=== PATIENT | female | born 1985 | race Caucasian/White ===

== ENCOUNTER 2017-01-03 11:00 | Day surgery (SDC) | payer OTHER ==
[~2017-01-03] VITALS: Ht 165.1 cm; Wt 113.0 kg
[~2017-01-03 11:00] MED LIST: ALBU8.5H3 INH; BACTDS PO; BECL8.7A INH; IBUP-1542 PO; OMEP20CA16 PO; OXYC-281 PO; TRAM50TA2 PO
[2017-01-03 11:50] VITALS: Ht 165.1 cm; Wt 113.0 kg
[2017-01-03] MEDS ORDERED: CETI10CA PO (11:54)
[2017-01-03] MEDS ORDERED: FLUT9.9S NASAL (11:54)
[2017-01-03] MEDS ORDERED: MONT10TA21 PO (11:54)
[2017-01-03] MEDS ORDERED: PROPOFOL 20 ML ONE (12:57)
[2017-01-03 13:10] VITALS: BP 101/64; PULSE 54; RESP 18
[2017-01-03 13:46] VITALS: BP 97/51; PULSE 67; RESP 18
--- NOTE | 2017-01-03 14:14 | GILP ---
DATE OF PROCEDURE: 01/03/2017 NAME OF PROCEDURES: Esophagogastroduodenoscopy and biopsy. SURGEON: Arnie Acharya MD PREOPERATIVE DIAGNOSIS: Chronic heartburn. POSTOPERATIVE DIAGNOSES: 1. Hiatal hernia. 2. Gastroesophageal reflux disease. 3. Gastritis with erosions. 4. Gastric mucosal biopsies were taken for Helicobacter pylori test. INDICATION FOR THE PROCEDURE: Ms. Melanie Zapata is a 31-year-old female patient who had chroni c heartburn, not responding to therapy. The patient was scheduled for endoscopic examination for fu rther evaluation. The procedure and possible complications are well explained to the patient, she understood and conse nted to the procedure. DESCRIPTION OF PROCEDURE: Under the influence of anesthesia, the gastroscope was carefully introduc ed into the esophagus and under direct vision, it was advanced to the stomach and through the pyloru s into the duodenal bulb and descending duodenum. FINDINGS: ESOPHAGUS: The patient had hiatal hernia and gastroesophageal reflux disease. STOMACH: She had gastritis with erosions. Gastric mucosal biopsies were taken for H. pylori test. DUODENUM: Normal. She tolerated the procedure very well and there was no complication from the procedure. At the end of the procedures, she was awake with stable vital signs and she was discharged home to the care of her family. IMPRESSION: Please see postoperative diagnosis. PLAN: 1. Continue omeprazole. 2. Add Zantac 300 mg p.o. at bedtime. 3. Await H. pylori test report. Dictated By: ARNIE ACHARYA MD GD/NTS Conf#: [id number] DID#: [id number] CC: ARNIE ACHARYA MD;*EndCC*
--- NOTE | 2017-01-04 12:28 | CONS ---
DATE OF ADMISSION: 01/03/2017 DATE OF CONSULTATION: TYPE OF CONSULTATION: Preoperative gastroenterology. Dear Dr. Judge: I thank you very much for this kind referral. HISTORY OF PRESENT ILLNESS: Ms. Melanie Zapata is a 31-year-old female patient who has been ref erred to me for further evaluation of chronic heartburn not responding to therapy with omeprazole. There is no past history of peptic ulcer disease. She is not taking any nonsteroidal anti-inflammat ory agents. Her appetite has been good, and there is no history of significant weight loss. There is no history of gallstones. She does not have any fever, chills or jaundice. There is no history of liver disease. The patient denies any change in the bowel habit or rectal bleeding. There is no past history of inflammatory bowel disease or colon neoplasm. She is not hypertensive or diabetic. She does not have any heart disease. She has a history of bronchial asthma. There is no history of kidney disease. SOCIAL HISTORY: She is a nonsmoker. She does not abuse alcohol. FAMILY HISTORY: Negative for gastrointestinal tract neoplasm. ALLERGIES: THERE IS NO HISTORY OF SIGNIFICANT DRUG ALLERGY. MEDICATIONS: 1. Qvar inhaler. 2. Singulair. PHYSICAL EXAMINATION: VITAL SIGNS: She is 5 feet 5 inches tall and she weighs 250 pounds. HEART: Examination of the heart reveals normal first and second heart sounds. LUNGS: Clear. ABDOMEN: Soft without any distention. Liver and spleen are not palpable. There are no masses. Th ere is no focal tenderness. Normal bowel sounds are heard. CENTRAL NERVOUS SYSTEM: Does not reveal any focal neurological deficit. IMPRESSION: 1. Chronic heartburn, not responding to therapy with omeprazole. 2. Bronchial asthma. 3. Obesity. 4. The patient has an intrauterine device (IUD) to prevent . PLAN: 1. Continue omeprazole. 2. The patient was strongly advised to lose weight. 3. Endoscopic examination for further evaluation. 4. Because of the marked obesity with a short thick neck, she needs monitored anesthesia care for t he procedure. The procedure and possible complications are well explained to the patient. She understands and con sents to the procedure. I thank you once again. With warmest personal regards, Dictated By: ARNIE MOLINA/JAMIL Conf#: [id number] [facility]#: [id number]
== END 2017-01-03 15:45 | disposition home or self-care (01) ==
LOC: GIL 11:00
PROVIDERS: ATTEND Internal Medicine Gastroenterology
DX: K44.9 Diaphragmatic hernia without obstruction or gangrene (principal); K21.9 Gastro-esophageal reflux disease without esophagitis; K29.60 Other gastritis without bleeding; E66.9 Obesity, unspecified; Z68.41 Body mass index [BMI] 40.0-44.9, adult; J45.909 Unspecified asthma, uncomplicated
CPT/HCPCS: 43239; 84703; 87081; Z7610

== ENCOUNTER 2017-02-14 18:43 | Emergency (ER) | payer OTHER ==
[~2017-02-14] VITALS: Ht 162.6 cm; Wt 109.0 kg
[~2017-02-14 18:43] MED LIST changes: -BACTDS PO; +CETI10CA PO; +FLUT9.9S NASAL; +MONT10TA21 PO; -OXYC-281 PO; -TRAM50TA2 PO
[2017-02-14 18:55] VITALS: Ht 162.6 cm; Wt 109.0 kg
[2017-02-14] MEDS ORDERED: IBUP-1542 PO (19:18)
[2017-02-14] MEDS ORDERED: AMO500 PO (19:18)
--- NOTE | 2017-02-14 19:37 | ERD ---
ER Documentation Chief Complaint Date/Time DATE: 02/14/17 TIME: 19:35 Chief Complaint sore throat x 1 day HPI 31-year-old female presents to emergency department for complaints of sore throat and fever that started today. Patient described the pain as throbbing pain, 6/10 scale, is worse upon swallowing. Patient denies any stridor. Patient denies any shortness breath. Patient denies any sick contacts. ROS All systems reviewed and are negative except as per history of present illness. Medications Home Meds Active Scripts Ibuprofen* (Motrin*) 600 Mg Tab, 600 MG PO Q6H Y for PAIN AND OR ELEVATED TEMP, #30 TAB Prov:LI LA DISPLAY MANAGER 02/14/17 Amoxicillin* (Amoxicillin*) 500 Mg Cap, 500 MG PO TID for 10 Days, CAP Prov:LI LA DISPLAY MANAGER 02/14/17 Ibuprofen* (Motrin*) 600 Mg Tab, 600 MG PO Q6H Y for PAIN AND OR ELEVATED TEMP, #30 TAB Prov:LI LA DISPLAY MANAGER 05/01/16 Reported Medications Fluticasone Propionate (Flonase Allergy Relief) 9.9 Ml Tyner.susp, 1 SPRAY NASAL DAILY, #1 BOTTLE TO EACH NOSTRIL 01/03/17 Montelukast Sodium* (Singulair*) 10 Mg Tablet, 10 MG PO DAILY, #30 TAB 01/03/17 Cetirizine Hcl* (Zyrtec*) 10 Mg Capsule, 10 MG PO DAILY, TAB 01/03/17 Omeprazole* (Omeprazole*) 20 Mg Capsule.dr, 20 MG PO DAILY, #30 CAP 11/04/15 Albuterol Sulfate* (Proair HFA*) 8.5 Gm Hfa.aer.ad, 2 PUFF INH Q4H Y for WHEEZING AND SOB, #1 INHALER 11/04/15 Beclomethasone Dip* (Qvar 40*) 7.3 Gm Inha, 1 PUFF INH BID, #1 INHALER 11/04/15 Allergies Allergies: Coded Allergies: No Known Allergy (Unverified , 11/04/15) PMhx/Soc History of Surgery: Yes (c- section, i&D thigh, pe tubes) Anesthesia Reaction: No Hx Neurological Disorder: No Hx Respiratory Disorders: Yes (asthma) Hx Cardiac Disorders: No Hx Psychiatric Problems: No Hx Miscellaneous Medical Probl: No Hx Alcohol Use: Yes Hx Substance Use: Yes (marijuana) Hx Tobacco Use: No FmHx Family History: No coronary disease, No diabetes, No other Physical Exam Vitals Vital Signs Date Time Temp Pulse Resp B/P Pulse Ox O2 Delivery O2 Flow Rate FiO2 02/14/17 18:55 98.9 71 20 134/81 99 Physical Exam GENERAL: The patient is well developed and appropriate for usual state of health, in no apparent distress. HEENT: Atraumatic. Ears: Normal tympanic membrane, no erythema or bulging. No ear canal swelling. No ear discharge. Nose: normal nasal turbinates, no erythema or swelling. Normal nasal discharge. Throat: oropharynx erythematous with +1 tonsillar swelling on both tonsils, and tonsillar exudates noted. No lymphadenopathy. CHEST: Clear to auscultation bilaterally. There are no rales, wheezes or rhonchi. HEART: Regular rate and rhythm. No murmurs, clicks, rubs or gallops. No S3 or S4. ABDOMEN: Soft, nontender and nondistended. Good bowel sounds. No rebound or guarding. No gross peritonitis. No gross organomegaly or masses. No Barber sign or McBurney point tenderness. BACK: No midline or flank tenderness. EXTREMITIES: Equal pulses bilaterally. There is no peripheral clubbing, cyanosis or edema. No focal swelling or erythema. Full range of motion. Grossly neurovascularly intact. NEURO: Alert and oriented. Cranial nerves 2-12 intact. Motor strength in all 4 extremities with 5/5 strength. Sensation grossly intact. Normal speech and gait. SKIN: There is no apparent rash or petechia. The skin is warm and dry. HEMATOLOGIC AND LYMPHATIC: There is no evidence of excessive bruising or lymphedema. No gross cervical, axillary, or inguinal lymphadenopathy. Procedures/MDM Medical decision making: Patient symptoms is likely consistent with acute bacterial pharyngitis, most likely strep throat. Low suspicion for peritonsillar abscess, mononucleosis, no symptoms of epiglottitis, laryngitis. No oral airway obstruction noted. No symptoms of sepsis at this time. Patient appears well and is hemodynamically stable. Patient was given for amoxicillin, ibuprofen, is advised to follow-up with primary care doctor in 2-3 days for reevaluation of symptoms. Patient is advised to do salt water gargles. Patient is advised to return to emergency department for worsening symptoms. Disposition: Home. Stable. Departure Diagnosis: Primary Impression: Acute bacterial pharyngitis Condition: Stable Patient Instructions: Pharyngitis, Strep (Presumed) LI LA NP February 14, 2017 19:37
== END 2017-02-14 19:20 | disposition home or self-care (01) ==
LOC: E/R 18:43
DX: J02.9 Acute pharyngitis, unspecified (principal); J45.909 Unspecified asthma, uncomplicated
CPT/HCPCS: 99283

== ENCOUNTER 2017-05-03 08:10 | Emergency (ER) | END 2017-05-03 10:28 | disposition home or self-care (01) | DX: R51 Headache (principal); J45.909 Unspecified asthma, uncomplicated; Z87.891 Personal history of nicotine dependence | CPT/HCPCS: 70450; 96374; 96375; J1200; J2765; J7030; Z7502 ==